=== PATIENT | male | born 1955 | race Caucasian/White ===

== ENCOUNTER 2017-02-24 07:38 | Day surgery (SDC) | payer OTHER, SELFPAY ==
--- NOTE | 2017-02-22 02:06 | HP ---
HISTORY OF PRESENT ILLNESS: Patient is a 61-year-old gentleman, who was seen in the [facility] for hemoptysis. He has longstanding history of tobacco abuse, unable to quit smoking. He was jb wagner seen in 2014. He now tells me that he has been coughing blood off and on for a period of oswaldo e. Sputum was done at that time for cytology negative. He is unable to quit smoking. A CAT scan d one showed lung nodules. At that time, in 2014, had a PFT which was normal. We planned to see him every 6 months with a chest x-ray. He has failed to follow up. In order state that in 11/2015, fany g nodules did not appear any larger in size. He continues to smoke. In July now he had chest pain for which he was admitted and made a diagnosis of coronary artery disease and was given with 1 stent placed in. Now taking Lipitor 40, Plavix 75, metoprolol 25, lisinopril 5 and Flovent inhaler and an albuterol i nhaler. He has lost 20 pounds. He now has further worsening hemoptysis. X-ray apparently taken in Dr. Montoya's office showed a new mass. CAT scan confirmed the rather extensive right upper lung mas s with mediastinal and hilar adenopathy. PAST MEDICAL HISTORY: High cholesterol, coronary artery disease, ongoing tobacco abuse. PAST SURGICAL HISTORY: None except for the recent cardiac catheterization and stent, that appears h sunny might have had a previous stent in 2007. SOCIAL AND FAMILY HISTORY: Worked in the [employer] one time and is apparently disabled. PHYSICAL EXAMINATION: VITAL SIGNS: O2 saturation is 90%, pulse 80, blood pressure 110/70, respirations 17. CHEST: Extensive wheezing in the right, more pronounced; left unremarkable. CARDIAC: Sinus tachycardia. ABDOMEN: Soft. IMPRESSION: 1. Metastatic bronchogenic carcinoma. 2. Ongoing tobacco abuse. 3. Recent unstable angina with stent. PLAN: He is to not take any Plavix for 3 days. Likely do a bronchoscopy on Monday. He was referre d to oncologist. He is to apply for disability. He is going to try to refrain from smoking. Progn osis is guarded.
[2017-02-23 16:07] VITALS: BMI 25.0
[2017-02-24] MEDS ORDERED: Fentanyl 100 MCG/2 ML VIAL ONE (08:53)
[2017-02-24] MEDS ORDERED: Midazolam HCl 2 mg/2 ml Vial ONE ×2 (08:53)
[2017-02-24] MEDS ORDERED: Lidocaine 1% (PF) 30 ML VIAL ONE (08:53)
[2017-02-24] MEDS ORDERED: Lidocaine 4% PF 5 ML AMP FS SCH (09:00)
[2017-02-24] MEDS ORDERED: Sodium Chloride 0.9% 50 ML IV SCH (09:00)
[2017-02-24] MEDS ORDERED: EPINEPHrine 1 MG/10 ML Abboject SYRINGE ONE (09:31)
--- NOTE | 2017-02-24 14:59 | OP ---
DATE OF PROCEDURE: 02/24/2017 A 62-year-old gentleman. PROCEDURE: Bronchoscopy. INDICATIONS: Right suprahilar mass and right hilar mass, rule out bronchogenic carcinoma. POST-BRONCHOSCOPY DIAGNOSIS: Extensive endobronchial disease involving the right mainstem and right upper lobe and right lower lobe and right bronchus intermedius. Findings consistent with bronchoge geetha carcinoma. PROCEDURE IN DETAIL: After informed consent, the patient received DuoNeb 4 mL of 4% Xylocaine. He was given 2 Versed and 50 of fentanyl during the procedure. His left nostril was prepped with lidoc nestor jelly 1%. Flexible bronchoscope video was passed via the left nostril. Pharynx, upper pharynx , and vocal cords were visualized and unremarkable. On entering the trachea, this was normal and th e left lung was inspected initially, left upper and left lower lobe and no endobronchial obstruction was seen. Entering the right lung, the right mainstem bronchus was markedly narrowed, thickened, f riable mucosa, was not really able to visualize the right upper lung. Orifice appeared to be comple tely closed. The bronchus intermedius had extensive nodular friable mucosa. I was unable to visual ize the basilar segments. Head of the right lung was lavaged with normal saline. Thereafter, multiple biopsies were obtained from mainly the area of the right mainstem bronchus, right bronchus intermedius. There was minimal bleeding, which was controlled with epinephrine, a total of 6 mL of 1:10,000. Washings sent for cytology, AFB smear and culture, fungus smear and culture, routine Gram stain and C\T\S. Biopsies sent for histopathology, brushings for cytology. Patient tolerated the procedure well. BRIEF DISCHARGE NOTE: The patient tolerated the procedure well. Results will be made available to the patient and family. Further recommendations as above.
== END 2017-02-24 11:15 | disposition home or self-care (01) ==
LOC: SDC 07:38
PROVIDERS: ATTEND Internal Medicine Pulmonary Disease
PROC: 0BB58ZX Excision of Right Middle Lobe Bronchus, Via Natural or Artificial Opening Endoscopic, Diagnostic (ICD-10-PCS; principal; 2017-02-24)
PROC: 0BB38ZX Excision of Right Main Bronchus, Via Natural or Artificial Opening Endoscopic, Diagnostic (ICD-10-PCS; principal; 2017-02-24)
DX: C34.11 Malignant neoplasm of upper lobe, right bronchus or lung (principal); E78.5 Hyperlipidemia, unspecified; I25.10 Atherosclerotic heart disease of native coronary artery without angina pectoris; F17.200 Nicotine dependence, unspecified, uncomplicated; Z79.02 Long term (current) use of antithrombotics/antiplatelets; Z79.82 Long term (current) use of aspirin; Z79.899 Other long term (current) drug therapy; Z95.5 Presence of coronary angioplasty implant and graft
CPT/HCPCS: 87070; 87077; 87102; 87116; 87186; 87205; 87206; 88104; 88112; 88305; 88313; 88341; 88342; 88360; 94640; 99152; J0171; J2001; J2250; J3010

== ENCOUNTER 2017-03-24 09:11 | Day surgery (SDC) | payer OTHER, SELFPAY ==
[2017-03-24] MEDS ORDERED: Ondansetron 2MG/ML MDV 10 MG, Dexamethasone 10 MG in Sodium Chloride 0.9% 50 ML IVP SCH (09:30)
[2017-03-24] MEDS ORDERED: PACLitaxel 90 MG in Sodium Chloride 0.9% 250 ML 250 ML IVPB SCH (09:45)
[2017-03-24] MEDS ORDERED: CARBOplatin 250 MG in Sodium Chloride 0.9% 250 ML 250 ML IVPB SCH ×2 (09:45→10:00)
[2017-03-24 10:24] VITALS: BP 125/60; TEMP 97.8
[2017-03-24] MEDS ORDERED: FLU VACC QS2017-18 36 mo. & older 0.5 ML SYRINGE IM ONE (21:00)
== END 2017-03-24 13:47 | disposition home or self-care (01) ==
LOC: ONC/OP 09:11
PROVIDERS: ATTEND Internal Medicine Hematology & Oncology
DX: Z51.11 Encounter for antineoplastic chemotherapy (principal); C34.11 Malignant neoplasm of upper lobe, right bronchus or lung; I25.2 Old myocardial infarction; I25.10 Atherosclerotic heart disease of native coronary artery without angina pectoris; E78.5 Hyperlipidemia, unspecified; J44.9 Chronic obstructive pulmonary disease, unspecified; F17.210 Nicotine dependence, cigarettes, uncomplicated; Z79.02 Long term (current) use of antithrombotics/antiplatelets; Z79.82 Long term (current) use of aspirin; Z79.899 Other long term (current) drug therapy; Z95.818 Presence of other cardiac implants and grafts; Z98.890 Other specified postprocedural states; Z80.9 Family history of malignant neoplasm, unspecified
CPT/HCPCS: 96367; 96413; 96417; J1100; J2405; J7050; J9045; J9267

== ENCOUNTER 2017-04-10 11:00 | Day surgery (SDC) | payer OTHER, SELFPAY ==
[2017-04-10] MEDS ORDERED: Sodium Chloride 0.9% 20 ML ONE (11:15)
[2017-04-10] MEDS ORDERED: CARBOPLATIN IVPB SCH (11:30)
[2017-04-10] MEDS ORDERED: PACLITAXEL IVPB SCH (11:30)
[2017-04-10] MEDS ORDERED: ADMIXTURE FEE IVPB SCH ×2 (11:30)
[2017-04-10] MEDS ORDERED: SODIUM CHLORIDE IVPB SCH ×2 (11:30)
[2017-04-10] MEDS ORDERED: Ondansetron 2MG/ML MDV 10 MG, Dexamethasone 10 MG, Admixture Fee 1 EACH in Sodium Chlor... IVP SCH (11:30)
[2017-04-10 11:41] VITALS: BP 111/63; TEMP 98.2
== END 2017-04-10 16:14 | disposition home or self-care (01) ==
LOC: ONC/OP 11:00
PROVIDERS: ATTEND Internal Medicine Hematology & Oncology
DX: Z51.11 Encounter for antineoplastic chemotherapy (principal); C34.11 Malignant neoplasm of upper lobe, right bronchus or lung; C78.1 Secondary malignant neoplasm of mediastinum; I25.2 Old myocardial infarction; I25.10 Atherosclerotic heart disease of native coronary artery without angina pectoris; E78.5 Hyperlipidemia, unspecified; F17.210 Nicotine dependence, cigarettes, uncomplicated; J44.9 Chronic obstructive pulmonary disease, unspecified; Z79.899 Other long term (current) drug therapy; Z79.82 Long term (current) use of aspirin; Z79.02 Long term (current) use of antithrombotics/antiplatelets; Z95.818 Presence of other cardiac implants and grafts; Z98.890 Other specified postprocedural states; Z80.9 Family history of malignant neoplasm, unspecified
CPT/HCPCS: 96367; 96413; 96417; A4216; J1100; J2405; J7050; J9045; J9267

== ENCOUNTER 2017-04-17 10:09 | Day surgery (SDC) | payer OTHER, SELFPAY ==
[2017-04-17] MEDS ORDERED: Sodium Chloride 0.9% 20 ML ONE (10:27)
[2017-04-17] MEDS ORDERED: Ondansetron 2MG/ML MDV 10 MG, Dexamethasone 10 MG, Admixture Fee 1 EACH in Sodium Chlor... IVP SCH (11:15)
[2017-04-17] MEDS ORDERED: CARBOPLATIN IVPB SCH (11:15)
[2017-04-17] MEDS ORDERED: SODIUM CHLORIDE IVPB SCH ×2 (11:15→11:30)
[2017-04-17] MEDS ORDERED: ADMIXTURE FEE IVPB SCH ×2 (11:15→11:30)
[2017-04-17] MEDS ORDERED: PACLITAXEL IVPB SCH (11:30)
== END 2017-04-17 17:42 | disposition home or self-care (01) ==
LOC: ONC/OP 10:09
PROVIDERS: ATTEND Internal Medicine Hematology & Oncology
DX: Z51.11 Encounter for antineoplastic chemotherapy (principal); C34.11 Malignant neoplasm of upper lobe, right bronchus or lung; I25.2 Old myocardial infarction; I25.10 Atherosclerotic heart disease of native coronary artery without angina pectoris; E78.00 Pure hypercholesterolemia, unspecified; J44.9 Chronic obstructive pulmonary disease, unspecified; F17.210 Nicotine dependence, cigarettes, uncomplicated; Z79.02 Long term (current) use of antithrombotics/antiplatelets; Z79.82 Long term (current) use of aspirin; Z79.899 Other long term (current) drug therapy; Z95.818 Presence of other cardiac implants and grafts; Z98.890 Other specified postprocedural states; Z80.9 Family history of malignant neoplasm, unspecified
CPT/HCPCS: 96367; 96413; 96417; A4216; J1100; J2405; J7050; J9045; J9267

== ENCOUNTER 2017-04-24 10:07 | Day surgery (SDC) | payer SELFPAY ==
[2017-04-24] MEDS ORDERED: CARBOPLATIN IVPB SCH (11:15)
[2017-04-24] MEDS ORDERED: PACLITAXEL IVPB SCH (11:15)
[2017-04-24] MEDS ORDERED: ADMIXTURE FEE IVPB SCH ×2 (11:15)
[2017-04-24] MEDS ORDERED: Ondansetron 2MG/ML MDV 10 MG, Dexamethasone 10 MG, Admixture Fee 1 EACH in Sodium Chlor... IVP SCH (11:15)
[2017-04-24] MEDS ORDERED: SODIUM CHLORIDE IVPB SCH ×2 (11:15)
[2017-04-24] MEDS ORDERED: Famotidine/PF 20 mg/2ml Vial SLOW IVP SCH (14:00)
[2017-04-24 17:03] VITALS: BP 111/69; TEMP 97.8
== END 2017-04-24 17:19 | disposition home or self-care (01) ==
LOC: ONC/OP 10:07
PROVIDERS: ATTEND Internal Medicine Hematology & Oncology
DX: Z51.11 Encounter for antineoplastic chemotherapy (principal); C34.11 Malignant neoplasm of upper lobe, right bronchus or lung; I25.2 Old myocardial infarction; I25.10 Atherosclerotic heart disease of native coronary artery without angina pectoris; E78.00 Pure hypercholesterolemia, unspecified; F17.210 Nicotine dependence, cigarettes, uncomplicated; J44.9 Chronic obstructive pulmonary disease, unspecified; Z79.02 Long term (current) use of antithrombotics/antiplatelets; Z79.82 Long term (current) use of aspirin; Z79.899 Other long term (current) drug therapy; Z95.818 Presence of other cardiac implants and grafts; Z98.890 Other specified postprocedural states
CPT/HCPCS: 96367; 96376; 96413; 96417; 99212; G0463; J1100; J2405; J7050; J9045; J9267; S0028

== ENCOUNTER 2017-05-01 10:57 | Day surgery (SDC) | payer OTHER, SELFPAY ==
[2017-05-01] MEDS ORDERED: Famotidine/PF 20 mg/2ml Vial SLOW IVP SCH (12:00)
[2017-05-01] MEDS ORDERED: Ondansetron 2MG/ML MDV 10 MG, Dexamethasone 10 MG, Admixture Fee 1 EACH in Sodium Chlor... IVP SCH (12:00)
[2017-05-01] MEDS ORDERED: ADMIXTURE FEE IVPB SCH ×2 (12:30)
[2017-05-01] MEDS ORDERED: CARBOPLATIN IVPB SCH (12:30)
[2017-05-01] MEDS ORDERED: PACLITAXEL IVPB SCH (12:30)
[2017-05-01] MEDS ORDERED: SODIUM CHLORIDE IVPB SCH ×2 (12:30)
[2017-05-01] MEDS ORDERED: Sodium Chloride 0.9% 20 ML ONE (13:52)
[2017-05-01 14:55] VITALS: BP 124/73; TEMP 98.1
== END 2017-05-01 15:15 | disposition home or self-care (01) ==
LOC: ONC/OP 10:57
PROVIDERS: ATTEND Internal Medicine Hematology & Oncology
DX: Z51.11 Encounter for antineoplastic chemotherapy (principal); C34.11 Malignant neoplasm of upper lobe, right bronchus or lung; I25.2 Old myocardial infarction; I25.10 Atherosclerotic heart disease of native coronary artery without angina pectoris; E78.00 Pure hypercholesterolemia, unspecified; J44.9 Chronic obstructive pulmonary disease, unspecified; F17.210 Nicotine dependence, cigarettes, uncomplicated; Z79.02 Long term (current) use of antithrombotics/antiplatelets; Z79.82 Long term (current) use of aspirin; Z79.899 Other long term (current) drug therapy; Z95.818 Presence of other cardiac implants and grafts; Z98.890 Other specified postprocedural states
CPT/HCPCS: 96367; 96375; 96413; 96417; A4216; J1100; J2405; J7050; J9045; J9267; S0028

== ENCOUNTER 2017-07-03 08:32 | Outpatient (CLI) | payer OTHER ==
[2017-07-03] MEDS ORDERED: Iopamidol 370 76% 100 ML VIAL ONE (09:00)
[2017-07-03 09:10] LABS: Estimated GFR-MDRD - POC Greater than 90
--- NOTE | 2017-07-03 13:17 | CT ---
CT OF THE CHEST WITH CONTRAST: COMPARISON: 02/17/17. HISTORY: Lung cancer status post new oral medication therapy. TECHNIQUE: Multiple contiguous axial images were obtained in a CT of the chest with contrast. Coronal reformats were performed. FINDINGS: There is an area of central necrosis in the central aspect of the right upper lobe near the hilum. T his measures 3.2 cm in size. This was previously not necrotic and there was a mass in this hilar reg ion. Postobstructive atelectasis is seen in the right upper lobe associated with volume loss. A surjit cified granuloma is seen in the right middle lobe. There are also 2 calcified granulomas in the righ t lower lobe. No pleural effusion is seen. No other pulmonary nodules are present. There is an enlarged subcarinal lymph node measuring 2.6 cm in greatest dimension. Other smaller but enlarged mediastinal lymph nodes are seen. The heart is normal in size. Calcifications are seen in t he coronary arteries and aorta. The visualized subdiaphragmatic structures are unremarkable. No suspicious osseous lesions are ident ified. The chest wall soft tissues are unremarkable. IMPRESSION: There is central cavitation of the previously seen right hilar mass. There is complete collapse of t he right upper lobe. There is an enlarged subcarinal lymph node consistent with metastatic disease t o the mediastinum. POS: [facility]
== END 2017-07-03 08:33 | disposition home or self-care (01) ==
LOC: SCSCT 08:32
PROVIDERS: ATTEND Internal Medicine Hematology & Oncology
DX: C34.11 Malignant neoplasm of upper lobe, right bronchus or lung (principal); R59.0 Localized enlarged lymph nodes
CPT/HCPCS: 71260; 82565

== ENCOUNTER 2017-07-10 19:53 | Inpatient (IN) | payer OTHER ==
[~2017-07-10 19:53] MED LIST: ISOVUE-370 76%-LOCM 1 ML ONE
[2017-07-10 20:40] LABS: #Eosinphils 0.1 thou/uL (0.0-0.7); #Lymphocytes 0.5 thou/uL (1.20-3.40); #Neutrophils 10.5 thou/uL (1.40-6.50); %Eosinophils 0.5 % (0.0-10.0); %Lymphocytes 3.8 % (21.0-51.0); %Neutrophils 87.7 % (42.0-75.0); Hemoglobin 10.1 g/dL (14.0-18.0); Mean Corpuscular HGB CONC 31.2 g/dL (32.0-36.0); Mean Corpuscular Hemoglobin 27.5 pg (27.0-31.0); Mean Corpuscular Volume 87.9 fl (80.0-94.0); Mean Platelet Volume 6.7 fL (7.4-10.4); Platelet Count 409 thou/uL (130-400); RBC Distribution Width 17.2 % (11.5-14.5); Red Blood Cell (RBC) Count 3.67 mill/uL (4.70-6.10)
[2017-07-10 20:46] LABS: INR-International Normal Ratio 1.3
[2017-07-10] MEDS ORDERED: Acetaminophen 500 MG TAB ONE (20:58)
[2017-07-10 21:00] LABS: ALT (SGPT) 43 U/L (8-55); AST (SGOT) 34 U/L (5-34); Alkaline Phosphatase 113 U/L (40-150); Anion Gap 12 mmol/L (10-20); BUN (Urea Nitrogen) 12 mg/dL (8.4-25.7); Bilirubin, Total 0.4 mg/dL (0.2-1.2); Calc. Creatinine Clearance 0 mL/min (70-130); Calcium 8.5 mg/dL (7.8-10.44); Carbon Dioxide 24 mmol/L (23-31); Chloride 98 mmol/L (98-107); Estimated GFR-MDRD Greater than 90; Globulin 3.9 g/dL (2.4-3.5); Glucose 124 mg/dL (80-115); Potassium 3.9 mmol/L (3.5-5.1); Protein, Total 6.9 g/dL (5.8-8.1); Sodium 130 mmol/L (136-145)
[2017-07-10 21:05] LABS: CKMB 0.3 ng/mL (0-6.6); Troponin I 0.017 ng/mL (< 0.028)
--- NOTE | 2017-07-10 21:57 | RAD ---
PORTABLE CHEST: History: Cough. Comparison: Chest CT 07-03-17. FINDINGS/IMPRESSION: Right upper lobe opacification corresponds to the recent CT findings of right upper lobe mass and ate lectasis. Lungs otherwise appear clear. No evidence of interval change since the CT of 07-03-17. POS: [facility]
--- NOTE | 2017-07-10 22:26 | CT ---
CT PULMONARY ANGIO WITH CONTRAST: Technique: Multiple axial tomograms were obtained through chest with IV enhancement and pulmonary emb olism phase with multiplanar reconstruction and 3D post processing. History: Lung cancer. Hemoptysis. FINDINGS: No evidence of pulmonary embolus. There is a right hilar mass in the suprahilar region which compresses the main right pulmonary outflo w tract and compresses right upper lobe pulmonary arteries. There is a cavitary portion of this right upper lobe mass as described on the recent CT chest of 07-03. The cavitary portion of this mass which was described on recent CT communicates with the right m ainstem bronchus. There is infiltrate seen today in the right middle lobe which is retracted superior ly due to the right upper lobe atelectasis. This right middle lobe infiltrate is new since the recent CT of 07-03-17 indicating interval pneumonia. There are also areas of patchy infiltrate in the endorsement clerk ior right lower lobe which has developed. Left lung appears clear. IMPRESSION: 1. No acute pulmonary embolus. 2. Right hilar mass with right upper lobe collapse. 3. cavitary portion of this right upper lobe mass communicates with the right main stem bronchus. 4. There is new infiltrate now seen in the right middle lobe which is retracted superiorly and anteri lisa due to the right upper lobe atelectasis. There is also patchy infiltrate in the posterior right lower lobe. POS: [facility]
[2017-07-11] MEDS ORDERED: Piperacillin/Tazobactam 4.5 GM in Sodium Chloride 0.9% 100 ML IVPB SCH (01:00)
[2017-07-11] MEDS ORDERED: Acetaminophen 325 MG TAB ONE ×2 (06:44→16:20)
[2017-07-11] MEDS ORDERED: Benzonatate 100 MG CAP ONE (06:44)
--- NOTE | 2017-07-11 09:58 | PDOC.EVN ---
Event Note - Event Note Event Note: [id number] H&P Dictated 1. Pneumonia 2. Hemoptysis 3. HTN 4. HPL 5. H/O CAD plan; see orders
[2017-07-11] MEDS: guaiFENesin ER 600 MG TAB PO PRN (10:09)
[2017-07-11] MEDS: Azithromycin 500 MG, Admixture Fee 1 EACH in Sodium Chloride 0.9% 250 ML 250 ML IVPB SCH (11:17)
[2017-07-11] MEDS: Piperacillin/Tazobactam 3.375 GM, Admixture Fee 1 EACH in Sodium Chloride 0.9% 100 ML IVPB SCH ×3 (12:22→21:53)
[2017-07-11] MEDS: Vancomycin HCl 1.5 GM, Admixture Fee 1 EACH in Sodium Chloride 0.9% 250 ML 300 ML IVPB SCH ×2 (13:09→23:00)
--- NOTE | 2017-07-11 16:14 | HP ---
DATE OF ADMISSION: 07/11/2017 CHIEF COMPLAINT: Cough, hemoptysis. HISTORY OF PRESENT ILLNESS: Patient is 62 years old male with past medical history of coronary arter y disease, hypertension, hyperlipidemia, right-sided lung CA status post chemo and radiation, current ly on remission. Now came today complaining of cough. Cough is present since yesterday, cough with some hemoptysis. Denies any fever, denies any chills at this time, but complains of fever at home. Denies any chest pain. Denies any trouble breathing, denies dizziness, denies lightheadedness, compl aints of some chest condition. Denies any nausea, denies any vomiting, denies any diarrhea, cough wa s persistent. He cannot able to sleep the whole night. PAST MEDICAL HISTORY: As per HPI. PAST SURGICAL HISTORY: Reviewed. SOCIAL HISTORY: Denies spontaneous alcohol use and drugs. FAMILY HISTORY: Positive for heart problems. REVIEW OF SYSTEMS: Constitutional: Positive for fever. Eyes: No vision problems. Ears: Denies h earing loss. Neck: Denies any neck pain. Cardiovascular: Denies any chest pain, denies any palpat ion. Respiratory: Positive for cough. Gastrointestinal: Denies nausea, denies vomiting. Musculos keletal: Denies any joint deformities. Integumentary: Denies any rash. Psychiatric: Denies depre ssion and anxiety. All other review of systems are reviewed and are negative. PHYSICAL EXAMINATION: CONSTITUTIONAL/VITAL SIGNS: At the time of H and P performed, blood pressure is 99/60, pulse ox 94%, afebrile, respiration rate 18. GENERAL: The patient appears comfortable. HEENT: Anterior nares patent. Nose normal. Oral cavity, tongue moist. Poor dentition. NECK: Supple, no JVD. CARDIOVASCULAR SYSTEM: S1, S2 present. Regular rate and rhythm. No murmurs, no rubs, no gallops. RESPIRATORY SYSTEM: No wheezing, no rhonchi. Breath sounds present bilaterally. ABDOMEN: Soft, nontender, no guarding, no organomegaly, no masses felt. PSYCHIATRIC: Mood appropriate at this time. INTEGUMENTARY: No rashes seen. LABORATORY DATA: At the time of H and P performed, white count 12, hemoglobin 10.1, platelet count i s 409. PT 16, INR 1.3. BMP: Sodium 130, potassium 3.9, chloride 98, CO2 of 24, BUN of 12, creatini ne 0.65, glucose 124, albumin 3. IMAGING: CT chest, no acute PE, right hilar mass with right upper lobe collapse, cavity portion righ t upper communicates the right main stem bronchus. There is no infiltrate seen. There is also patch y infiltrate in the posterior right lower robe. ASSESSMENT AND PLAN: The patient is 62 years old male. 1. Pneumonia. Plan to start patient on broad spectrum antibiotics. Plan to consult Pulmonary toile t with the patient. We will follow the patient. 2. Hemoptysis, preserved right lung mass. Plan to consult hematology oncology with the patient and we will follow the patient. 3. History of hypertension. Hold blood pressure medications as the blood pressure has slowed. 4. History of hyperlipidemia. Continue statins. 5. History of coronary disease. Hold Plavix and aspirin at this time due to hemoptysis. We will mo nitor the patient closely. 6. Cough. P.r.n. cough suppressants. Case was discussed in detail with the patient. Patient is FU LL CODE.
[2017-07-11] MEDS: Atorvastatin Calcium 40 MG TAB PO SCH (21:40)
[2017-07-11 23:41] VITALS: BMI 24.3
[2017-07-12] MEDS: Piperacillin/Tazobactam 3.375 GM, Admixture Fee 1 EACH in Sodium Chloride 0.9% 100 ML IVPB SCH ×4 (02:02→20:56)
--- NOTE | 2017-07-12 07:32 | PDOC.PN ---
- Subjective Encounter Start Date: 07/12/17 Encounter Start Time: 10:00 Subjective: Patient with persistent cough and hemoptysis. No other changes. - Objective MAR Reviewed: Yes Vital Signs & Weight: Vital Signs (12 hours) Temp Pulse Resp BP Pulse Ox 07/12/17 07:23 98.9 F 93 16 109/65 94 L 07/12/17 04:00 100.0 F H 92 20 99/61 97 07/12/17 00:55 97 18 96 Weight Weight 150 lb 11.2 oz I&O: 07/11/17 07/12/17 07/13/17 06:59 06:59 06:59 Intake Total 700 Balance 700 Result Diagrams: 07/10/17 20:25 07/10/17 20:26 Phys Exam - Physical Examination Constitutional: NAD HEENT: moist MMs Respiratory: no wheezing, no rales, no rhonchi decreased breath sounds to right apex Cardiovascular: RRR, no significant murmur Gastrointestinal: soft, positive bowel sounds Neurological: non-focal, moves all 4 limbs Psychiatric: normal affect, A&O x 3 Dx/Plan (1) Cough with hemoptysis Code(s): R04.2 - HEMOPTYSIS Status: Acute Comment: ? post obstructive pneumonia, elevated WBC, low grade temp, on abx since 07/11/17 (2) Anemia associated with acute blood loss Code(s): D62 - ACUTE POSTHEMORRHAGIC ANEMIA Status: Acute Comment: Hgb 10, normal MCV, thrombocytosis, check iron studies (3) Malignant neoplasm of upper lobe, right bronchus or lung Code(s): C34.11 - MALIGNANT NEOPLASM OF UPPER LOBE, RIGHT BRONCHUS OR LUNG Status: Acute (4) CAD (coronary artery disease) Code(s): I25.10 - ATHSCL HEART DISEASE OF [place] CORONARY ARTERY W/O ANG PCTRS Status: Chronic Qualifiers: Coronary Disease-Associated Artery/Lesion type: [place] artery Comment: holding Plavix due to bleeding (5) Hypertension Code(s): I10 - ESSENTIAL (PRIMARY) HYPERTENSION Status: Chronic (6) Hyperlipidemia Code(s): E78.5 - HYPERLIPIDEMIA, UNSPECIFIED Status: Chronic - Plan cont current plan of care, continue antibiotics Awaiting oncology consultation * . - Discharge Day Encounter end time: 10:30
[2017-07-12 08:04] LABS: Iron Binding Capacity, Total 163 mcg/dL (261-462)
[2017-07-12 08:05] LABS: Iron 20 ug/dL (65-175)
[2017-07-12] MEDS ORDERED: FLU VACC QS2017-18 36 mo. & older 0.5 ML SYRINGE IM ONE (09:00)
[2017-07-12] MEDS: Azithromycin 500 MG, Admixture Fee 1 EACH in Sodium Chloride 0.9% 250 ML 250 ML IVPB SCH (10:12)
[2017-07-12] MEDS ORDERED: VANCOMYCIN IVPB PRN (10:28)
--- NOTE | 2017-07-12 10:51 | CON ---
DATE OF CONSULTATION: 07/12/2017 Please note history obtained from talking with the patient and his sister at the bedside. Reviewed a ll old medical records including all of his old CT reports, new CT reports, images and reports were vi roman. HISTORY: He is a 62-year-old gentleman with known history of bronchogenic carcinoma who is seeing a local physician, had chemo and radiation. CAT scan a week ago, still shows pretty much complete yeni apse of the right upper lung with mediastinal adenopathy. He started coughing some blood, a total of about 50 mL of gross bloody sputum. He is now started on antibiotics. He denied any chest pain, chills or sweats. The intensity of his bleeding has subsided . He is still short of breath. In 02/2017 the patient was seen for hemoptysis. He coughed a lot of blood. Bronchoscopy revealed evidence of bronchogenic carcinoma for which he was seeing a local oncologist. 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 The patient has a history of former smoker. PAST MEDICAL HISTORY: High cholesterol, coronary artery disease, previous tobacco use. PAST SURGICAL HISTORY: Cardiac catheterization with multiple stents. Bronchoscopy. SOCIAL/FAMILY HISTORY: Tobacco use. Family history is unremarkable. MEDICATIONS: List of medicine from home includes nitroglycerin, metoprolol 25, lisinopril, Plavix, L ipitor and aspirin. On admission he was started on Zithromax, Zosyn and vancomycin. REVIEW OF SYSTEMS: Otherwise, 10-point negative. ALLERGIES: None. PHYSICAL EXAMINATION: GENERAL: Awake, alert, responsive. VITAL SIGNS: Sats 90% on room air, respiration 20, temperature 98, pulse 85. CHEST: Chest revealed decreased breath sounds in the right lung. Left lung unremarkable. CARDIAC: Normal S1-S2. No gallops. ABDOMEN: Soft. No masses. IMPRESSION: 1. Hemoptysis secondary to endobronchial disease, bronchogenic carcinoma, squamous cell. 2. Coronary artery disease, Plavix on board for multiple stents. This more than likely is hemoptysis from his necrotizing cancer. I doubt he has got pneumonia. PLAN: Would deescalate antibiotics in the next 24-48 hours. Switch to oral medication. I started e mpiric steroids. Will follow. If hemoptysis persists, may consider bronchoscopy. We will follow. Please note this is a consultation with the patient, 70 minutes of which 50% of my time was spent wit h direct patient care at the bedside.
[2017-07-12] MEDS: Vancomycin HCl 1.5 GM, Admixture Fee 1 EACH in Sodium Chloride 0.9% 250 ML 300 ML IVPB SCH ×2 (11:53→23:02)
[2017-07-12] MEDS: Atorvastatin Calcium 40 MG TAB PO SCH (20:56)
[2017-07-12] MEDS: predniSONE 20 MG TAB PO SCH (20:56)
[2017-07-12 23:21] LABS: Vancomycin, Trough 7.9 ug/mL
[2017-07-13] MEDS: Piperacillin/Tazobactam 3.375 GM, Admixture Fee 1 EACH in Sodium Chloride 0.9% 100 ML IVPB SCH ×4 (03:27→20:49)
[2017-07-13] MEDS: Benzonatate 100 MG CAP PO PRN ×3 (03:32→22:22)
[2017-07-13] MEDS ORDERED: Vancomycin HCl 1.25 GM in Sodium Chloride 0.9% 250 ML 250 ML IVPB SCH (08:00)
[2017-07-13] MEDS: predniSONE 20 MG TAB PO SCH ×2 (08:01→20:49)
[2017-07-13] MEDS: guaiFENesin ER 600 MG TAB PO PRN (08:13)
--- NOTE | 2017-07-13 09:08 | PRG ---
DATE OF SERVICE: 07/13/2017 SUBJECTIVE: The family had a falling out with Dr. Mckeon yesterday and I have been asked to take on th is case. Mr. Drummond has agreed to my stipulation that I will only be involved in the case provided th at he does not ask me to go back and make judgment about his previous care. He is agreeable with the se stipulations. Today, the patient feels better. He is still having some scant hemoptysis. PHYSICAL EXAMINATION: VITAL SIGNS: Temperature is 98.0, pulse 69, respirations 18, O2 sat 96% on room air. HEENT: Unremarkable. NECK: Without adenopathy or JVD. LUNGS: Clear to auscultation without wheezing or rhonchi. CARDIAC: S1 and S2 regular. ABDOMEN: Soft and nontender. EXTREMITIES: No edema. LABORATORY DATA: He had no labs done today. His micro cultures show no growth to date. ASSESSMENT: 1. He has stage III lung cancer of the right upper lobe, status post radiation and chemotherapy. 2. Hemoptysis, which is likely secondary to endobronchial tumor. 3. Possible postobstructive pneumonia. RECOMMENDATIONS: I would recommend consolidating his antibiotics. I would start with the discontinu ation of the vancomycin since staff does not seem to be involved. If his 48 hour cultures are negati ve, then I would convert him over to oral Augmentin and discontinue the piperacillin, tazobactam and azithromycin. My goal would be for him to go home by Monday at the latest. I have reviewe d his treatment chart and agree with the steroids and nebulization therapy.
[2017-07-13] MEDS: Azithromycin 500 MG, Admixture Fee 1 EACH in Sodium Chloride 0.9% 250 ML 250 ML IVPB SCH (11:35)
--- NOTE | 2017-07-13 13:59 | PDOC.PN ---
- Subjective Encounter Start Date: 07/13/17 Encounter Start Time: 12:15 Patient is seen today, felicia sebastian neb therapy, he feels he is not coughing up blood much. he feels better. - Objective MAR Reviewed: Yes Vital Signs & Weight: Vital Signs (12 hours) Temp Pulse Resp BP Pulse Ox 07/13/17 13:08 77 18 07/13/17 11:31 97.8 F 75 17 97/63 97 07/13/17 08:03 69 18 96 07/13/17 07:55 98 F 82 19 103/68 98 07/13/17 04:00 98.7 F 78 22 H 115/57 L 94 L Weight Weight 152 lb I&O: 07/12/17 07/13/17 07/14/17 06:59 06:59 06:59 Intake Total 700 1552 Output Total 960 Balance 700 592 Result Diagrams: 07/10/17 20:25 07/10/17 20:26 Radiology Reviewed by me: Yes Phys Exam - Physical Examination HEENT: PERRLA, moist MMs Neck: no nodes, no JVD Respiratory: wheezing present Cardiovascular: no significant murmur, no rub Gastrointestinal: soft, non-tender Musculoskeletal: no edema, pulses present Neurological: non-focal, normal sensation Dx/Plan (1) Anemia associated with acute blood loss Code(s): D62 - ACUTE POSTHEMORRHAGIC ANEMIA Status: Acute Comment: Hgb 10, normal MCV, thrombocytosis, check iron studies (2) Cough with hemoptysis Code(s): R04.2 - HEMOPTYSIS Status: Acute Comment: this is ruled out by pulmonary and plan to taper off to one antibitic, Augmentin. Follow recommedations. (3) CAD (coronary artery disease) Code(s): I25.10 - ATHSCL HEART DISEASE OF [place] CORONARY ARTERY W/O ANG PCTRS Status: Chronic Qualifiers: Coronary Disease-Associated Artery/Lesion type: [place] artery Comment: holding Plavix due to bleeding (4) Hyperlipidemia Code(s): E78.5 - HYPERLIPIDEMIA, UNSPECIFIED Status: Chronic Comment: Continue Home meds (5) Hypertension Code(s): I10 - ESSENTIAL (PRIMARY) HYPERTENSION Status: Chronic Comment: Stbale at goal. Continue Home emds. (6) Malignant neoplasm of upper lobe, right bronchus or lung Code(s): C34.11 - MALIGNANT NEOPLASM OF UPPER LOBE, RIGHT BRONCHUS OR LUNG Status: Acute Comment: Planned Chemotherapy/ Radiation next week with [facility]. - Plan cont current plan of care, continue antibiotics, PT/OT, respiratory therapy, incentive spirometry, out of bed/ambulate, DVT proph w/SCDs * . - Discharge Day Encounter end time: 12:50 Review of Systems - Review of Systems Constitutional: negative: fever, chills, sweats, weakness, malaise, other Eyes: negative: Pain, Vision Change, Conjunctivae Inflammation, Eyelid Inflammation, Redness, Other ENT: negative: Ear Pain, Ear Discharge, Nose Pain, Nose Discharge, Nose Congestion, Mouth Pain, Mouth Swelling, Throat Pain, Throat Swelling, Other Respiratory: Shortness of Breath, Hemoptysis. negative: Cough, Dry, SOB with Excertion, Pleuritic Pain, Sputum, Wheezing Cardiovascular: negative: chest pain, palpitations, orthopnea, paroxysmal nocturnal dyspnea, edema, light headedness, other Gastrointestinal: negative: Nausea, Vomiting, Abdominal Pain, Diarrhea, Constipation, Melena, Hematochezia, Other Musculoskeletal: negative: Neck Pain, Shoulder Pain, Arm Pain, Back Pain, Hand Pain, Leg Pain, Foot Pain, Other Skin: negative: Rash, Lesions, Clifford, Bruising, Other - Medications/Allergies Allergies/Adverse Reactions: Allergies Allergy/AdvReac Type Severity Reaction Status Date / Time No Known Allergies Allergy Verified 07/11/17 21:56 Medications: Current Medications Albuterol/Ipratropium (Duoneb) 3 ml NEB [id number] [facility] Last Admin: 07/13/17 13:08 Dose: 3 ml Atorvastatin Calcium (Lipitor) 40 mg PO HS [facility] Last Admin: 07/12/17 20:56 Dose: 40 mg Benzonatate (Tessalon) 100 mg PO TIDPRN PRN PRN Reason: Cough Last Admin: 07/13/17 12:54 Dose: 100 mg Guaifenesin (Mucinex) 600 mg PO BIDPRN PRN PRN Reason: Chest Congestion/Secretions Last Admin: 07/13/17 08:13 Dose: 600 mg Azithromycin 500 mg/Miscellaneous Medication 1 each/ Sodium Chloride 250 mls @ 250 mls/hr IVPB 1100 [facility] Last Admin: 07/13/17 11:35 Dose: 250 mls Piperacillin Sod/Tazobactam Sod 3.375 gm/ Miscellaneous Medication 1 each/ Sodium Chloride 100 mls @ 200 mls/hr IVPB 0300,0900,1500,2100 [facility] Last Admin: 07/13/17 10:46 Dose: 100 mls Prednisone (Prednisone) 20 mg PO BID [facility] Last Admin: 07/13/17 08:01 Dose: 20 mg Sodium Chloride (Flush - Normal Saline) 10 ml IVF Q12HR [facility] Last Admin: 07/13/17 08:01 Dose: 10 ml Sodium Chloride (Flush - Normal Saline) 10 ml IVF PRN PRN PRN Reason: Saline Flush
[2017-07-13] MEDS: Atorvastatin Calcium 40 MG TAB PO SCH (20:48)
[2017-07-14] MEDS: Piperacillin/Tazobactam 3.375 GM, Admixture Fee 1 EACH in Sodium Chloride 0.9% 100 ML IVPB SCH (02:24)
--- NOTE | 2017-07-14 07:50 | PDOC.PULPN ---
Progress Note: Subj/Obj - Subjective Date: 07/14/17 Time: 07:47 Narrative: Feels better. Ambulating. Scant hemoptysis - ROS All systems: reviewed and no additional remarkable complaints except as stated - Objective Allergies/Adverse Reactions: Allergies Allergy/AdvReac Type Severity Reaction Status Date / Time No Known Allergies Allergy Verified 07/11/17 21:56 Medications: Current Medications Albuterol/Ipratropium (Duoneb) 3 ml NEB [id number] [facility] Last Admin: 07/14/17 07:05 Dose: 3 ml Atorvastatin Calcium (Lipitor) 40 mg PO HS [facility] Last Admin: 07/13/17 20:48 Dose: 40 mg Benzonatate (Tessalon) 100 mg PO TIDPRN PRN PRN Reason: Cough Last Admin: 07/13/17 22:22 Dose: 100 mg Guaifenesin (Mucinex) 600 mg PO BIDPRN PRN PRN Reason: Chest Congestion/Secretions Last Admin: 07/13/17 08:13 Dose: 600 mg Prednisone (Prednisone) 20 mg PO BID [facility] Last Admin: 07/13/17 20:49 Dose: 20 mg Sodium Chloride (Flush - Normal Saline) 10 ml IVF Q12HR [facility] Last Admin: 07/13/17 20:49 Dose: 10 ml Sodium Chloride (Flush - Normal Saline) 10 ml IVF PRN PRN PRN Reason: Saline Flush Last Admin: 07/13/17 15:54 Dose: 10 ml MAR Reviewed: Yes Vital Signs: Vital Signs Temp 98.1 F 07/14/17 04:00 Pulse 75 07/14/17 07:05 Resp 12 07/14/17 07:05 BP 102/61 07/14/17 04:00 Pulse Ox 98 07/14/17 04:00 Intake & Output 07/13/17 07/14/17 07/14/17 18:59 06:59 18:59 Intake Total 1370 Output Total 600 Balance 770 Intake: Intake, IV Amount 650 Oral 720 Output: Urine 600 Other: Voiding Method Toilet # Unmeasured Voids 1 # Bowel Movements 1 Progress Note: Exam - Physical Exam Constitutional: NAD HEENT: PERRLA Neck: no nodes Cardiovascular: RRR Respiratory: clear to auscultation bilaterally Gastrointestinal: soft, no distention Musculoskeletal: no edema Neurological: non-focal, moves all 4 limbs Lymphatic: no nodes Psychiatric: normal affect, A&O x 3 Skin: no rash Progress Note: Data - Labs Result Diagrams: 07/10/17 20:25 07/10/17 20:26 Lab results: Laboratory Results 07/12/17 22:47 Vancomycin Trough 7.9 Progress Note: A/P - Plan Plan: Impression: Hemoptysis - likely secondary to lung cancer Question of concurrent PNA Lung Cancer Plan: Change to oral antibiotics. Can probably go home by tomorrow am at the latest. Needs 14 total days of antibiotics and taper steroids over [address] Mckeon is available this weekend if assistance needed.
[2017-07-14] MEDS: Amoxicillin/Potassium Clav 875 MG TAB PO SCH ×2 (09:23→20:30)
[2017-07-14] MEDS: predniSONE 20 MG TAB PO SCH ×2 (09:24→20:30)
--- NOTE | 2017-07-14 12:33 | PDOC.PN ---
- Subjective Encounter Start Date: 07/14/17 Encounter Start Time: 10:30 Hussein is seen today, he is not coughing up blood anymore, No chest pain, he is on RA. - Objective MAR Reviewed: Yes Vital Signs & Weight: Vital Signs (12 hours) Temp Pulse Resp BP Pulse Ox 07/14/17 08:00 97 F L 90 18 105/64 97 07/14/17 07:05 75 12 07/14/17 04:00 98.1 F 87 16 102/61 98 07/14/17 00:45 87 16 96 Weight Weight 152 lb I&O: 07/13/17 07/14/17 07/15/17 06:59 06:59 06:59 Intake Total 1552 1570 240 Output Total 960 600 Balance 592 970 240 Result Diagrams: 07/10/17 20:25 07/10/17 20:26 Radiology Reviewed by me: Yes Phys Exam - Physical Examination HEENT: PERRLA, moist MMs Neck: no nodes, no JVD Respiratory: no wheezing, no rales Cardiovascular: RRR, no significant murmur Gastrointestinal: soft, non-tender Musculoskeletal: no edema, pulses present Neurological: non-focal, normal sensation Dx/Plan (1) Anemia associated with acute blood loss Code(s): D62 - ACUTE POSTHEMORRHAGIC ANEMIA Status: Acute Comment: Hgb 10, normal MCV, thrombocytosis, iron deficincy anemia (2) Cough with hemoptysis Code(s): R04.2 - HEMOPTYSIS Status: Acute Comment: this is ruled out by pulmonary and plan to taper off to one antibitic, Augmentin. Also to continue steroide taper over 2 weeks.Follow recommedations. (3) CAD (coronary artery disease) Code(s): I25.10 - ATHSCL HEART DISEASE OF [place] CORONARY ARTERY W/O ANG PCTRS Status: Chronic Qualifiers: Coronary Disease-Associated Artery/Lesion type: [place] artery Comment: holding Plavix due to bleeding (4) Hyperlipidemia Code(s): E78.5 - HYPERLIPIDEMIA, UNSPECIFIED Status: Chronic Comment: Continue Home meds (5) Hypertension Code(s): I10 - ESSENTIAL (PRIMARY) HYPERTENSION Status: Chronic Comment: Stbale at goal. Continue Home emds. (6) Malignant neoplasm of upper lobe, right bronchus or lung Code(s): C34.11 - MALIGNANT NEOPLASM OF UPPER LOBE, RIGHT BRONCHUS OR LUNG Status: Acute Comment: Planned Chemotherapy/ Radiation next week with [facility]. - Plan cont current plan of care, plan discussed w/ family, social media marketer, respiratory therapy, incentive spirometry, out of bed/ambulate, DVT proph w/SCDs * . - Discharge Day Encounter end time: 11:00 Review of Systems - Review of Systems Constitutional: negative: fever, chills, sweats, weakness, malaise, other Eyes: negative: Pain, Vision Change, Conjunctivae Inflammation, Eyelid Inflammation, Redness, Other ENT: negative: Ear Pain, Ear Discharge, Nose Pain, Nose Discharge, Nose Congestion, Mouth Pain, Mouth Swelling, Throat Pain, Throat Swelling, Other Respiratory: Hemoptysis Cardiovascular: negative: chest pain, palpitations, orthopnea, paroxysmal nocturnal dyspnea, edema, light headedness, other Gastrointestinal: negative: Nausea, Vomiting, Abdominal Pain, Diarrhea, Constipation, Melena, Hematochezia, Other Genitourinary: negative: Dysuria, Frequency, Incontinence, Hematuria, Retention , Other Musculoskeletal: negative: Neck Pain, Shoulder Pain, Arm Pain, Back Pain, Hand Pain, Leg Pain, Foot Pain, Other Skin: negative: Rash, Lesions, Clifford, Bruising, Other - Medications/Allergies Allergies/Adverse Reactions: Allergies Allergy/AdvReac Type Severity Reaction Status Date / Time No Known Allergies Allergy Verified 07/11/17 21:56 Medications: Current Medications Albuterol/Ipratropium (Duoneb) 3 ml NEB [id number] [facility] Last Admin: 07/14/17 07:05 Dose: 3 ml Amoxicillin/Clavulanate Potassium (Augmentin) 875 mg PO Q12HR [facility] Last Admin: 07/14/17 09:23 Dose: 875 mg Atorvastatin Calcium (Lipitor) 40 mg PO HS [facility] Last Admin: 07/13/17 20:48 Dose: 40 mg Benzonatate (Tessalon) 100 mg PO TIDPRN PRN PRN Reason: Cough Last Admin: 07/13/17 22:22 Dose: 100 mg Guaifenesin (Mucinex) 600 mg PO BIDPRN PRN PRN Reason: Chest Congestion/Secretions Last Admin: 07/13/17 08:13 Dose: 600 mg Prednisone (Prednisone) 20 mg PO BID LILY Last Admin: 07/14/17 09:24 Dose: 20 mg Sodium Chloride (Flush - Normal Saline) 10 ml IVF Q12HR LILY Last Admin: 07/14/17 09:24 Dose: 10 ml Sodium Chloride (Flush - Normal Saline) 10 ml IVF PRN PRN PRN Reason: Saline Flush Last Admin: 07/13/17 15:54 Dose: 10 ml
[2017-07-14] MEDS: Ferrous Sulfate 325 MG TAB PO SCH (17:04)
[2017-07-14] MEDS ORDERED: Clopidogrel Bisulfate 75 MG TAB ONE (17:44)
[2017-07-14] MEDS: guaiFENesin ER 600 MG TAB PO PRN (20:30)
[2017-07-14] MEDS: Atorvastatin Calcium 40 MG TAB PO SCH (20:30)
[2017-07-15 05:45] LABS: #Eosinphils 0.1 thou/uL (0.0-0.7); #Lymphocytes 0.4 thou/uL (1.20-3.40); #Monocytes 0.6 thou/uL (0.11-0.59); #Neutrophils 8.7 thou/uL (1.40-6.50); %Eosinophils 0.8 % (0.0-10.0); %Lymphocytes 4.2 % (21.0-51.0); %Monocytes 5.7 % (0.0-10.0); %Neutrophils 89.3 % (42.0-75.0); Hemoglobin 9.7 g/dL (14.0-18.0); Mean Corpuscular HGB CONC 30.5 g/dL (32.0-36.0); Mean Corpuscular Hemoglobin 27.3 pg (27.0-31.0); Mean Corpuscular Volume 89.5 fl (80.0-94.0); Mean Platelet Volume 6.7 fL (7.4-10.4); Platelet Count 492 thou/uL (130-400); Red Blood Cell (RBC) Count 3.55 mill/uL (4.70-6.10); White Blood Cell (WBC) Count 9.7 thou/uL (4.8-10.8)
[2017-07-15] MEDS: predniSONE 20 MG TAB PO SCH (09:00)
[2017-07-15] MEDS: Ferrous Sulfate 325 MG TAB PO SCH (09:00)
[2017-07-15] MEDS: Amoxicillin/Potassium Clav 875 MG TAB PO SCH (09:00)
[2017-07-15 12:32] VITALS: BP 123/71; TEMP 97.8
--- NOTE | 2017-07-15 14:41 | DIS ---
DATE OF ADMISSION: 07/11/2017 DATE OF DISCHARGE: 07/15/2017 ADMITTING DIAGNOSIS: Acute hemoptysis. DISCHARGE DIAGNOSIS: Acute hemoptysis secondary to right lung carcinoma. SECONDARY DIAGNOSES: 1. Pneumonia, likely obstructive pneumonia. 2. Hypertension. 3. Hyperlipidemia. 4. Coronary artery disease, status post right iliac stent. CONSULTATIONS: Consultants involved in the care is Pulmonology doctors, Dr. Isaac Mckeon and Dr. Ismael Cevallos. HISTORY OF PRESENT ILLNESS AND HOSPITAL COURSE: In brief, this is a 62-year-old white male, who has known history of bronchogenic carcinoma and is seeing a local physician with chemo and radiation. A CAT scan a week ago shows pretty much complete collapse of the right upper lung with mediastinal real opathy. The patient started coughing some blood, a total of about 50 mL of gross bloody sputum and f or which he came to the hospital. The patient was seen by Pulmonary doctor Dr. Mckeon and also Dr. Helen monroy, who suggested the patient need to be started on oral steroids and the patient was started on st eroids along with antibiotics for a possible pneumonia where the suspicion was very low. Because of his immune status, the patient was started on antibiotics, which was later changed to p.o. antibiotic s. The patient was continued on Augmentin. The patient showed good improvement with his hemoptysis following starting of the steroids and the patient was advised to follow up with his oncologist for f urther treatment. The patient was discharged home in stable condition and advised to continue on the oral steroids to taper down to 2 weeks and also antibiotics to complete 2 weeks course. The patient was stable on the day of discharge. PHYSICAL EXAMINATION: VITAL SIGNS: Blood pressure 123/71, heart rate is 88, respirations 24, saturations 96% on room air. GENERAL: The patient is moderately built and moderately nourished, does not appear in acute distress . CARDIOVASCULAR: S1, S2 normal. No murmurs, rubs or gallops. LUNGS: Bilateral air entry was equal. No wheezing, no crackles. ABDOMEN: Soft, nontender, no guarding, no rebound tenderness. Bowel sounds normal. MUSCULOSKELETAL: No calf tenderness. No pedal edema, no joint tenderness, no joint swelling. SKIN: No cyanosis, no edema, no rash, no pallor. DISCHARGE MEDICATIONS: NEW MEDICATIONS: 1. Prednisolone 20 mg p.o. b.i.d. He will continue for 4 days and drop it down to 10 mg p.o. b.i.d. for 4 days and then drop it further down to 10 mg p.o. daily and then 10 mg every 48 hours for 4 mor e days and then stop. 2. Augmentin 875 mg p.o. b.i.d. Continue for 10 more days, completing the 2 weeks course. HOME MEDICATIONS: 1. Benzonatate 100 mg p.o. q.8 hours. 2. Nitroglycerin 0.5 mg as needed for chest pain. 3. Zofran q.6 hours. 4. Aspirin 81 mg daily. 5. Plavix 75 mg p.o. daily. 6. Lisinopril 1 tablet p.o. daily. 7. Metoprolol 25 mg p.o. b.i.d. 8. Atorvastatin 40 mg p.o. daily. DISCHARGE INSTRUCTIONS: 1. Continue activity as tolerated. Advised to continue on aspirin, Plavix, and consult his cardiolo gist as the patient had a recent stent, which is less than 12 months old. 2. The patient will follow up with his Oncology for continuing with his radiation treatment. 3. The patient will follow up with Dr. Mckeon in 2 to 3 weeks. 4. Continue with a general diet. 5. The patient is discharged home in stable condition. I spent 35 minutes of this patient on the day of discharge.
--- NOTE | 2017-07-21 16:03 | PQF ---
ANDREW HIDALGO [place] [id number] CLINICAL DOCUMENTATION CLARIFICATION FORM: POST DISCHARGE Addendum to original discharge summary date: ____ Late entry note date: __ DATE: 07/21/17 ATTN: Dr. Barrera Please exercise your independent, professional judgment in responding to the clarification form. 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 Mckeon's Consult says, "hemoptysis from his necrotizing cancer...doubt he has got pneumonia" [employer] Insert treatment supporting diagnosis (This form is maintained as a part of the permanent medical record) 2014 [employer]. All Rights Reserved KHOA Tobias, CCS [email or web address] [phone] MTDD
--- NOTE | 2017-08-12 18:18 | EKG ---
Test Reason : Blood Pressure : / mmHG Vent. Rate : 105 BPM Atrial Rate : 105 BPM P-R Int : 136 ms QRS Dur : 088 ms QT Int : 340 ms P-R-T Axes : 077 035 044 degrees QTc Int : 449 ms Sinus tachycardia Right atrial enlargement Borderline ECG Confirmed by JOSE CAMPA ([id number]), make up editor CHANG MARTÍNEZ ([id number]) on 08/12/2017 6:18:23 PM Referred By: [email or web address] Confirmed By:JOSE CAMPA
== END 2017-07-15 13:09 | disposition home or self-care (01) | DRG 180 ==
LOC: ERS 19:53 → ERHOLD 23:53 → 2NO 07-11 18:31
PROVIDERS: ADMIT Internal Medicine; ATTEND Internal Medicine
DX: C34.11 Malignant neoplasm of upper lobe, right bronchus or lung (principal); J85.0 Gangrene and necrosis of lung; D62 Acute posthemorrhagic anemia; R04.2 Hemoptysis; E78.5 Hyperlipidemia, unspecified; I10 Essential (primary) hypertension; I25.10 Atherosclerotic heart disease of native coronary artery without angina pectoris; Z95.5 Presence of coronary angioplasty implant and graft
CPT/HCPCS: 36415; 71045; 71275; 80053; 80202; 82553; 82728; 83540; 83550; 83605; 84484; 85025; 85610; 86850; 86900; 86901; 87040; 93005; 94640; 96361; 96365; 96366; A4216; J0456; J2543; J3370; J7050; J7506; J7620